=== PATIENT | female | born 1945 | race African-American/Black ===

== ENCOUNTER 2018-02-17 21:42 | Emergency (ER) | payer SELFPAY ==
[~2018-02-17] VITALS: Ht 152.4 cm; Wt 61.0 kg
[2018-02-17 22:27] VITALS: BP 114/57
== END 2018-02-18 12:45 | disposition home or self-care (01) ==
LOC: ER 23:45
DX: T42.4X5A Adverse effect of benzodiazepines, initial encounter (principal); I95.9 Hypotension, unspecified; E11.9 Type 2 diabetes mellitus without complications; Y92.89 Other specified places as the place of occurrence of the external cause
CPT/HCPCS: 99283